=== PATIENT | female | born 1990 | race Two or more races ===

== ENCOUNTER 2020-08-06 22:47 | Emergency (ER) | payer MEDICAID, OTHER ==
[~2020-08-06] VITALS: Ht 170.2 cm; Wt 97.5 kg
[2020-08-06] MEDS ORDERED: FAMOTIDINE (10MG/ML) 2ML VL IV ONE (23:15)
[2020-08-06] MEDS ORDERED: SODIUM CHLORIDE 0.9% 1,000 ML IV ONE (23:15)
[2020-08-06] MEDS ORDERED: METOCLOPRAMIDE HCL 5MG/ml INJ 2ml VIAL IV ONE (23:15)
[2020-08-06] MEDS ORDERED: SUCRALFATE 1 GM/10 ML ORAL SUSP PO ONE (23:15)
[2020-08-06 23:38] LABS: Basophils # (auto) 0 10 ^3/uL (0-0.2); Basophils % (auto) 0.6 % (0.0-2.0); Eosinophils # (auto) 0 10 ^3/uL (0-0.8); Eosinophils % (auto) 0.3 % (0.0-7.0); Hematocrit 36.4 % (36.0-46.0); Hemoglobin 12.3 g/dL (12.2-16.2); Lymphocytes # (auto) 1.8 10 ^3/uL (0.4-5.4); Lymphocytes % (auto) 34.1 % (10.0-50.0); Mean Corpuscular Hemoglobin 30.1 pg (28.0-32.0); Mean Corpuscular Hgb Conc. 33.7 g/dL (32.0-36.0); Mean Corpuscular Volume 89.3 fL (80.0-100.0); Monocytes # (auto) 0.3 10 ^3/uL (0-1.3); Monocytes % (auto) 5.9 % (0.0-12.0); Neutrophils # (auto) 3.2 10 ^3/uL (1.6-8.6); Neutrophils % (auto) 59.1 % (37.0-80.0); Nucleated Red Blood Cells % 0.1 %; Platelet Count (auto) 260 10^3/uL (140-450); Red Blood Cells 4.08 10^6/uL (4.0-5.20); Red Cell Distribution Width 13.6 % (11.8-14.3); White Blood Cell 5.4 10^3/uL (4.4-10.8)
[2020-08-06 23:54] LABS: Calcium 8.9 mg/dL (8.5-10.1); Potassium 3.1 mmol/L (3.5-5.1)
[2020-08-06 23:58] LABS: Bilirubin, Total 0.3 mg/dL (0.2-1.0); Total Protein 7.7 g/dL (6.4-8.2)
[2020-08-07] MEDS ORDERED: LIDOCAINE VISCOUS 2% 15ML UD PO ONE (01:15)
[2020-08-07] MEDS ORDERED: SODIUM CHLORIDE 0.9% 1,000 ML IV ONE (02:00)
[2020-08-07 04:30] VITALS: BP 122/54
== END 2020-08-07 05:07 | disposition home or self-care (01) ==
LOC: ER 22:47
DX: K29.70 Gastritis, unspecified, without bleeding (principal); F12.10 Cannabis abuse, uncomplicated; Z20.822 Contact with and (suspected) exposure to COVID-19
CPT/HCPCS: 36415; 76705; 80053; 83605; 83690; 83735; 85025; 87426; 96361; 96374; 96375; 99284; J2765; J3490; J7030

== ENCOUNTER 2020-08-08 05:39 | Inpatient (IN) | payer MEDICAID ==
[~2020-08-08] VITALS: Ht 170.2 cm; Wt 98.7 kg
[2020-08-08] MEDS ORDERED: SODIUM CHLORIDE 0.9% 1,000 ML IV ONE (07:30)
[2020-08-08] MEDS ORDERED: ONDANSETRON HCL 4 MG/2 ML VIAL IV ONE ×2 (07:30→12:45)
[2020-08-08 08:25] LABS: Basophils # (auto) 0 10 ^3/uL (0-0.2); Basophils % (auto) 0.6 % (0.0-2.0); Eosinophils # (auto) 0 10 ^3/uL (0-0.8); Hemoglobin 11.7 g/dL (12.2-16.2); Lymphocytes # (auto) 0.8 10 ^3/uL (0.4-5.4); Lymphocytes % (auto) 13.4 % (10.0-50.0); Mean Corpuscular Hemoglobin 30.1 pg (28.0-32.0); Mean Corpuscular Hgb Conc. 33.5 g/dL (32.0-36.0); Mean Corpuscular Volume 89.8 fL (80.0-100.0); Monocytes # (auto) 0.2 10 ^3/uL (0-1.3); Monocytes % (auto) 3.3 % (0.0-12.0); Neutrophils # (auto) 4.8 10 ^3/uL (1.6-8.6); Neutrophils % (auto) 82.7 % (37.0-80.0); Nucleated Red Blood Cells % 0.1 %; Platelet Count (auto) 244 10^3/uL (140-450); Red Cell Distribution Width 13.8 % (11.8-14.3); White Blood Cell 5.8 10^3/uL (4.4-10.8)
[2020-08-08 08:40] LABS: Albumin 3.9 g/dL (3.4-5.0); Anion Gap 10 (5-15); Blood Urea Nitrogen 17 mg/dL (7-18); Calcium 8.6 mg/dL (8.5-10.1); Carbon Dioxide 21 mmol/L (21-32); Chloride 108 mmol/L (98-107); Glucose 98 mg/dL (74-106); INR 1.14 (0.9-1.15); Lipase 123 U/L (73-393); Partial Thromboplastin Time 26.4 sec (23.0-31.2); Potassium 3.4 mmol/L (3.5-5.1); Sodium 139 mmol/L (136-145)
[2020-08-08 08:42] LABS: Alanine Aminotransferase 24 U/L (13-56); Aspartate Aminotransferase 19 U/L (15-37); BUN/Creatinine Ratio 15.5; GFR African American 76 mL/min; GFR Non-African American 62 mL/min
[2020-08-08 08:47] LABS: Alkaline Phosphatase 51 U/L (45-117); Bilirubin, Total 0.3 mg/dL (0.2-1.0); Total Protein 7.2 g/dL (6.4-8.2)
[2020-08-08 10:05] LABS: Urine Bacteria NONE SEEN /hpf (None Seen); Urine Blood 3+ /uL (Negative); Urine Mucus FEW (None Seen); Urine Specific Gravity 1.035 (1.001-1.035); Urine WBC 3 /hpf (0 - 5)
[2020-08-08] MEDS ORDERED: METOCLOPRAMIDE HCL 5MG/ml INJ 2ml VIAL IV ONE (10:15)
[2020-08-08] MEDS ORDERED: IOHEXOL 300 MG/ML 100ML BOTTLE IJ ONE (10:22)
[2020-08-08] MEDS ORDERED: MORPHINE SULFATE 4 MG/ML SYR/VIAL IV ONE (11:45)
[2020-08-08] MEDS ORDERED: metroNIDAZOLE 500MG/100ML 100 ML IV ONE (11:45)
[2020-08-08] MEDS ORDERED: CIPROFLOXACIN 400MG/200ML 200 ML IV ONE (11:45)
[2020-08-08] MEDS ORDERED: HYDROcodone-ACET 5/325MG TAB PO PRN (14:15)
[2020-08-08] MEDS ORDERED: MORPHINE SULF INJ 2 MG/ML SYRINGE 1ML IV PRN (14:15)
[2020-08-08] MEDS ORDERED: ACETAMINOPHEN 325 MG TAB PO PRN (14:15)
[2020-08-08] MEDS ORDERED: NITROGLYCERIN 0.4 MG SL TAB SL PRN (14:15)
[2020-08-08] MEDS: SUCRALFATE 1 GM/10 ML ORAL SUSP PO SCH ×3 (16:00→21:41)
[2020-08-08] MEDS: POTASSIUM CHL 20MEQ/100ML 100 ML IV SCH ×2 (16:00→18:58)
[2020-08-08] MEDS: SODIUM CHLORIDE 0.9% 1,000 ML IV SCH ×2 (16:00→22:33)
[2020-08-08] MEDS: MORPHINE SULF INJ 2 MG/ML SYRINGE 1ML IV PRN (17:13)
[2020-08-08] MEDS: ONDANSETRON HCL 4 MG/2 ML VIAL IV PRN ×2 (17:13→23:16)
[2020-08-08] MEDS: PIPERACILLIN-TAZOB 3.375GM 100 ML IV SCH (20:58)
[2020-08-08] MEDS: PANTOPRAZOLE 40 MG/10 ML VIAL INJ IV SCH (21:41)
[2020-08-08] MEDS: metroNIDAZOLE 500MG/100ML 100 ML IV SCH (22:33)
[2020-08-09] MEDS: PIPERACILLIN-TAZOB 3.375GM 100 ML IV SCH ×4 (00:14→18:27)
[2020-08-09] MEDS: MORPHINE SULF INJ 2 MG/ML SYRINGE 1ML IV PRN ×2 (02:54→10:18)
[2020-08-09 05:02] LABS: Basophils # (auto) 0 10 ^3/uL (0-0.2); Basophils % (auto) 0.4 % (0.0-2.0); Eosinophils # (auto) 0 10 ^3/uL (0-0.8); Eosinophils % (auto) 0.1 % (0.0-7.0); Hematocrit 34.4 % (36.0-46.0); Hemoglobin 11.7 g/dL (12.2-16.2); Lymphocytes # (auto) 1.4 10 ^3/uL (0.4-5.4); Lymphocytes % (auto) 25.1 % (10.0-50.0); Mean Corpuscular Hemoglobin 30.4 pg (28.0-32.0); Mean Corpuscular Hgb Conc. 34.1 g/dL (32.0-36.0); Mean Corpuscular Volume 89.1 fL (80.0-100.0); Monocytes # (auto) 0.4 10 ^3/uL (0-1.3); Monocytes % (auto) 7.8 % (0.0-12.0); Neutrophils # (auto) 3.7 10 ^3/uL (1.6-8.6); Neutrophils % (auto) 66.6 % (37.0-80.0); Nucleated Red Blood Cells % 0.1 %; Platelet Count (auto) 224 10^3/uL (140-450); Red Blood Cells 3.86 10^6/uL (4.0-5.20); Red Cell Distribution Width 13.7 % (11.8-14.3); White Blood Cell 5.5 10^3/uL (4.4-10.8)
[2020-08-09 05:21] LABS: Albumin 3.5 g/dL (3.4-5.0); Calcium 8.1 mg/dL (8.5-10.1); Magnesium 2.3 mg/dL (1.6-2.6); Potassium 3.3 mmol/L (3.5-5.1)
[2020-08-09 05:25] LABS: Bilirubin, Total 0.4 mg/dL (0.2-1.0); Total Protein 6.7 g/dL (6.4-8.2)
[2020-08-09] MEDS: metroNIDAZOLE 500MG/100ML 100 ML IV SCH ×3 (05:49→22:46)
[2020-08-09] MEDS: SODIUM CHLORIDE 0.9% 1,000 ML IV SCH ×3 (08:00→22:46)
[2020-08-09] MEDS: SUCRALFATE 1 GM/10 ML ORAL SUSP PO SCH ×2 (08:55→11:33)
[2020-08-09] MEDS: PANTOPRAZOLE 40 MG/10 ML VIAL INJ IV SCH (10:00)
[2020-08-09] MEDS: ONDANSETRON HCL 4 MG/2 ML VIAL IV PRN ×2 (10:18→20:51)
[2020-08-09] MEDS ORDERED: diphenhdrAMINE HCL 50 MG/1 ML VL ONE (10:38)
[2020-08-09] MEDS ORDERED: LIDOCAINE VISCOUS 2% 15ML UD ONE (10:38)
[2020-08-09] MEDS: MIDAZOLAM HCL 5 MG/ML-1ML VIAL ONE ×2 (11:48→11:51)
[2020-08-09] MEDS ORDERED: ONDANSETRON HCL 4 MG/2 ML VIAL ONE (11:48)
[2020-08-09] MEDS: fentaNYL CITRATE 100 MCG/2 ML VL ONE ×2 (11:48→11:51)
[2020-08-09] MEDS: METOCLOPRAMIDE HCL 5MG/ml INJ 2ml VIAL IV SCH ×2 (14:00→22:46)
[2020-08-09 22:00] VITALS: BP 151/94
[2020-08-09] MEDS: PANTOPRAZOLE 40 MG TAB PO SCH (22:46)
[2020-08-10] MEDS: MORPHINE SULF INJ 2 MG/ML SYRINGE 1ML IV PRN ×3 (01:42→20:50)
[2020-08-10] MEDS: ONDANSETRON HCL 4 MG/2 ML VIAL IV PRN ×3 (01:42→20:50)
[2020-08-10] MEDS: PIPERACILLIN-TAZOB 3.375GM 100 ML IV SCH ×5 (01:43→23:39)
[2020-08-10] MEDS: metroNIDAZOLE 500MG/100ML 100 ML IV SCH ×3 (04:56→22:05)
[2020-08-10] MEDS: SODIUM CHLORIDE 0.9% 1,000 ML IV SCH ×3 (04:56→22:05)
[2020-08-10] MEDS: METOCLOPRAMIDE HCL 5MG/ml INJ 2ml VIAL IV SCH ×3 (04:56→22:03)
[2020-08-10 05:00] VITALS: BP 149/89
[2020-08-10 08:00] VITALS: BP 135/69
[2020-08-10] MEDS: PANTOPRAZOLE 40 MG TAB PO SCH ×2 (09:02→21:59)
[2020-08-10] MEDS ORDERED: ERYTHROMYCIN LACTOBIONATE 250 MG in SODIUM CHL 0.9% 100 ML IV SCH (13:00)
[2020-08-10 15:18] LABS: Basophils # (auto) 0.1 10 ^3/uL (0-0.2); Basophils % (auto) 1.1 % (0.0-2.0); Eosinophils # (auto) 0 10 ^3/uL (0-0.8); Eosinophils % (auto) 0.2 % (0.0-7.0); Hematocrit 37.4 % (36.0-46.0); Hemoglobin 12.6 g/dL (12.2-16.2); Lymphocytes # (auto) 1.3 10 ^3/uL (0.4-5.4); Lymphocytes % (auto) 22.7 % (10.0-50.0); Mean Corpuscular Hemoglobin 30.2 pg (28.0-32.0); Mean Corpuscular Hgb Conc. 33.7 g/dL (32.0-36.0); Mean Corpuscular Volume 89.7 fL (80.0-100.0); Monocytes # (auto) 0.4 10 ^3/uL (0-1.3); Neutrophils # (auto) 3.8 10 ^3/uL (1.6-8.6); Nucleated Red Blood Cells % 0.1 %; Platelet Count (auto) 241 10^3/uL (140-450); Red Blood Cells 4.17 10^6/uL (4.0-5.20); Red Cell Distribution Width 13.6 % (11.8-14.3); White Blood Cell 5.5 10^3/uL (4.4-10.8)
[2020-08-10 15:43] LABS: Calcium 8.7 mg/dL (8.5-10.1); Magnesium 2.3 mg/dL (1.6-2.6); Potassium 3.3 mmol/L (3.5-5.1)
[2020-08-10 16:00] VITALS: BP 138/86
[2020-08-10] MEDS: ERYTHROMYCIN LACTOBIONATE 250 MG in SODIUM CHL 0.9% 100 ML IV SCH (16:00)
[2020-08-10 22:00] VITALS: BP 142/91
[2020-08-11] MEDS: MORPHINE SULF INJ 2 MG/ML SYRINGE 1ML IV PRN (04:26)
[2020-08-11] MEDS: ONDANSETRON HCL 4 MG/2 ML VIAL IV PRN (04:26)
[2020-08-11 05:00] VITALS: BP 156/102
[2020-08-11] MEDS: METOCLOPRAMIDE HCL 5MG/ml INJ 2ml VIAL IV SCH ×2 (05:24→14:08)
[2020-08-11] MEDS: PIPERACILLIN-TAZOB 3.375GM 100 ML IV SCH ×2 (05:24→15:00)
[2020-08-11] MEDS: metroNIDAZOLE 500MG/100ML 100 ML IV SCH ×2 (05:25→14:08)
[2020-08-11] MEDS: SODIUM CHLORIDE 0.9% 1,000 ML IV SCH ×2 (05:49→14:15)
[2020-08-11 06:39] LABS: Basophils # (auto) 0 10 ^3/uL (0-0.2); Basophils % (auto) 0.3 % (0.0-2.0); Eosinophils # (auto) 0.1 10 ^3/uL (0-0.8); Eosinophils % (auto) 1.1 % (0.0-7.0); Hematocrit 33.6 % (36.0-46.0); Hemoglobin 11.8 g/dL (12.2-16.2); Lymphocytes # (auto) 1.2 10 ^3/uL (0.4-5.4); Lymphocytes % (auto) 27.1 % (10.0-50.0); Mean Corpuscular Hemoglobin 31.1 pg (28.0-32.0); Mean Corpuscular Volume 88.8 fL (80.0-100.0); Monocytes # (auto) 0.5 10 ^3/uL (0-1.3); Monocytes % (auto) 10.8 % (0.0-12.0); Neutrophils # (auto) 2.7 10 ^3/uL (1.6-8.6); Neutrophils % (auto) 60.7 % (37.0-80.0); Nucleated Red Blood Cells % 0.1 %; Platelet Count (auto) 217 10^3/uL (140-450); Red Blood Cells 3.79 10^6/uL (4.0-5.20); Red Cell Distribution Width 13.4 % (11.8-14.3); White Blood Cell 4.4 10^3/uL (4.4-10.8)
[2020-08-11 06:56] LABS: BUN/Creatinine Ratio 8.7; Calcium 7.8 mg/dL (8.5-10.1); Magnesium 2.3 mg/dL (1.6-2.6)
[2020-08-11 07:04] LABS: Potassium 2.8 mmol/L (3.5-5.1)
[2020-08-11] MEDS ORDERED: SOD CHL 0.9%/ KCL 40MEQ 1,000 ML IV SCH (07:45)
[2020-08-11] MEDS ORDERED: POTASSIUM CHL 20 Meq TABLET PO ONE (07:45)
[2020-08-11 08:00] VITALS: BP 153/75
[2020-08-11] MEDS: POTASSIUM CHL 20MEQ/100ML 100 ML IV SCH ×2 (09:12→11:10)
[2020-08-11] MEDS: PANTOPRAZOLE 40 MG TAB PO SCH (09:13)
[2020-08-11 16:00] VITALS: BP 135/84
[2020-08-11] MEDS: ERYTHROMYCIN LACTOBIONATE 250 MG in SODIUM CHL 0.9% 100 ML IV SCH (16:00)
[2020-08-11 16:20] VITALS: BP 135/84
== END 2020-08-11 18:36 | disposition home or self-care (01) | DRG 249 ==
LOC: ER 05:39 → TELE 05:40 → TELE-WESTW 08-09 21:21
PROVIDERS: ADMIT Internal Medicine; ATTEND Internal Medicine
PROC: 0DJ08ZZ Inspection of Upper Intestinal Tract, Via Natural or Artificial Opening Endoscopic (ICD-10-PCS; principal; 2020-08-09 11:52)
DX: K52.9 Noninfective gastroenteritis and colitis, unspecified (principal); K31.84 Gastroparesis; E87.6 Hypokalemia; F12.90 Cannabis use, unspecified, uncomplicated; K76.0 Fatty (change of) liver, not elsewhere classified; Z20.822 Contact with and (suspected) exposure to COVID-19
CPT/HCPCS: 36415; 74177; 78264; 80048; 80053; 81001; 81025; 83605; 83690; 83735; 84484; 85025; 85610; 85730; C9113; G0378; J2250; J2405; J2543; J3480; J3490

== ENCOUNTER 2021-07-10 15:08 | Emergency (ER) | payer MEDICAID ==
[~2021-07-10] VITALS: Ht 170.2 cm; Wt 81.6 kg
[2021-07-10] MEDS ORDERED: ONDANSETRON ODT 4 MG TAB PO ONE (17:45)
[2021-07-10] MEDS ORDERED: METOCLOPRAMIDE HCL 5MG/ml INJ 2ml VIAL IM ONE (21:45)
[2021-07-10] MEDS ORDERED: KETOROLAC TROMETH 60MG/2ML VIAL IM ONE (22:15)
[2021-07-11 00:46] VITALS: BP 133/73
== END 2021-07-11 01:09 | disposition home or self-care (01) ==
LOC: ER 15:08
DX: K52.9 Noninfective gastroenteritis and colitis, unspecified (principal); K29.70 Gastritis, unspecified, without bleeding; F12.188 Cannabis abuse with other cannabis-induced disorder; R53.83 Other fatigue; R68.83 Chills (without fever); Z20.822 Contact with and (suspected) exposure to COVID-19
CPT/HCPCS: 36415; 71045; 74176; 87426; 96372; 99285; J1885; J2765; Q0162

== ENCOUNTER 2023-02-21 04:31 | Emergency (ER) | payer MEDICAID, OTHER ==
[~2023-02-21] VITALS: Ht 167.6 cm; Wt 83.8 kg
[2023-02-21 04:44] VITALS: PULSE 87; RESP 16; O2SAT 99
[2023-02-21 08:35] VITALS: BP 127/70
== END 2023-02-21 08:42 | disposition home or self-care (01) ==
LOC: EEVIPCON 04:31 → ER 04:31
DX: S05.12XA Contusion of eyeball and orbital tissues, left eye, initial encounter (principal); Y04.2XXA Assault by strike against or bumped into by another person, initial encounter; Y93.89 Activity, other specified; Y92.89 Other specified places as the place of occurrence of the external cause; Y99.8 Other external cause status
CPT/HCPCS: 70486

== ENCOUNTER 2023-11-12 18:53 | Emergency (ER) | payer OTHER ==
[~2023-11-12] VITALS: Ht 167.6 cm; Wt 86.0 kg
[2023-11-12] MEDS ORDERED: ACET500T58 PO (20:39)
[2023-11-12] MEDS: ACETAMINOPHEN 325 MG TAB PO ONE (21:32)
[2023-11-12 21:40] VITALS: BP 103/65; PULSE 77; RESP 16; TEMP 98.7; O2SAT 99
== END 2023-11-12 23:10 | disposition home or self-care (01) ==
LOC: EEVIPCON 18:53 → ER 18:53
DX: S63.591A Other specified sprain of right wrist, initial encounter (principal); Z98.890 Other specified postprocedural states; Z79.899 Other long term (current) drug therapy; W01.0XXA Fall on same level from slipping, tripping and stumbling without subsequent striking against object, initial encounter; Y93.89 Activity, other specified; Y92.89 Other specified places as the place of occurrence of the external cause; Y99.0 Civilian activity done for income or pay
CPT/HCPCS: 29125; 73110